=== PATIENT | female | born 1990 | race Two or more races ===

== ENCOUNTER 2024-01-25 03:00 | Inpatient (IN) | payer MEDICAID, SELFPAY ==
[2024-01-25] VITALS (23 sets, daily range): BP systolic 94–124; BP diastolic 51–75; PULSE 71–91; RESP 15–18; TEMP 36.3–37.2; O2SAT 95–97; BMI 28.1
[2024-01-25 03:31] LABS: ROM Kit Lot # 57805053
[2024-01-25 03:32] LABS: ROM Swab Mixed By: RAWLT; Swb Mxed in Solvent 1 min? Yes
[2024-01-25 03:42] LABS: Rupture of Fetal Membranes Positive (Negative)
[2024-01-25] MEDS: RINGERS LACTATED 1000 ML 1,000 ML 125 ML IV (04:10)
[2024-01-25 04:49] LABS: Basophils # (Auto) 0.1 Thou/mm3 (0.0-0.2); Basophils % (Auto) 0 % (0-2.5); Eosinophils # (Auto) 0.1 Thou/mm3 (0.0-0.5); Eosinophils % (Auto) 1 % (0-10); Hemoglobin 11.3 g/dL (12.0-16.0); Immature Granulocytes % (Auto) 1 % (0-0); Immature Granulocytes Auto 0.08 Thou/mm3 (0.00-0.00); Lymphocytes # (Auto) 1.5 Thou/mm3 (1.0-4.8); Lymphocytes % (Auto) 10 % (10-50); Mean Corpuscular HGB Conc 35.3 g/dl (31.0-37.0); Mean Corpuscular Hemoglobin 31.9 pg (25.0-35.0); Mean Corpuscular Volume 90 fL (80-100); Monocytes # (Auto) 0.9 Thou/mm3 (0.0-0.8); Monocytes % (Auto) 6 % (0-12); Neutrophils # (Auto) 11.9 Thou/mm3 (1.8-7.7); Neutrophils % (Auto) 83 % (37-80); Nucleated Red Blood Cell % 0 /100 WBC (0); Platelet Count 227 Thou/mm3 (140-440); RDW Standard Deviation 45.1 fL (36.4-46.3); Red Blood Count 3.54 Miln/mm3 (4.00-5.20); White Blood Count 14.4 Thou/mm3 (3.6-11.0)
[2024-01-25 05:49] LABS: Syphilis Nonreactive (Nonreactive)
--- NOTE | 2024-01-25 07:29 | ESHP_ITS ---
Documentation for date of: 01/25/24 OB Labor/Induct. HPI History of Present Illness Chief complaint: leaking : 4 Para: 3 Term pregnancies: 3 pregnancies: 0 Living children: 3 History of Abortions: Spontaneous and Elective: 0 History of Vaginal deliveries: 3 History of sections: No History of : No Date of last menstrual period: 04/22/23 YARELIS: 01/27/24 Gestational Age (weeks): 39 Gestational Age (days): 6 Gestational age based on last menstrual period: 39 History of present illness: This is a 33-year-old 4 para 3 admit to labor and delivery complains of leaking fluid since 10 PM. And contractions. Patient been followed at [facility]. First visit was at 11 weeks. Last period April 22, 2023. This gave due date January 27, 2024. She is 40 and 5. Patient is A+, antibody screen negative, RPR nonreactive, rubella immune, hepatitis B negative, hepatitis C negative, HIV negative, GC and Chlamydia were negative. Her GBS negative. Her 1 hour was normal. She had a negative NIPT and carrier screen. And normal anatomy scans History of Present Dating criteria: LMP confirmed by 1st trimester US Adequate Care: Yes Ultrasounds: normal 1st trimester US Obstetrical complications: none Medical complications: none Labs Labs: Negative: Hepatitis B, HIV, Chlamydia, Gonorrhea and Group Beta Strep Review of Systems Review of Systems Systems Reviewed: All systems reviewed, normal except as documented Past Medical History Surgical History SURGICAL: Negative Section Meds Home Medications and Allergies Home Medications ?Medication ?Instructions ?Recorded ?Confirmed ?Type ferrous sulfate 27 mg iron tablet 27 mg PO BID 06/30/22 01/25/24 History vitamin-ferrous fumarate 1 tab PO QDAY 06/30/22 01/25/24 History 28 mg iron-folic acid 800 mcg tablet ( Vitamins with Minerals) Allergies Allergy/AdvReac Type Severity Reaction Status Date / Time No Known Allergies Allergy Verified 01/25/24 03:04 OB Exam Physical Exam Vital signs: Temp Pulse Resp BP 97.4 F 76 18 109/62 01/25/24 03:28 01/25/24 07:23 01/25/24 03:28 01/25/24 07:23 Narrative: Alert and oriented. Normal heart rate and rhythm. Lungs clear no wheezes. Gravid abdomen. Gynecoid pelvis. Estimated weight 7 pounds 10. Vaginal exam on admission was 70%, 4, -3. Vertex. heart rate category 1 with accelerations and moderate variability contractions about every 5 minutes. And leaking clear fluid Detailed Labor and Delivery Exam Dilation (cm): 4 Effacement (%): 70 Cervix position: mid station: -3 Consistency: soft Presentation: Vertex Cervical ripeness score: 8 Membranes: ruptured Amniotic fluid: clear Baseline heart rate: 135 monitor accelerations: 15x15 monitor decelerations: None superintendent terminal variability: Moderate (11-25) Contraction frequency (min): 5 Contraction duration (sec): 30 Tachysystole: No Contraction intensity: Moderate OB Results Labs 01/25/24 04:05 Labs: Short CBC 01/25/24 Range/Units 04:05 WBC 14.4 H (3.6-11.0) Thou/mm3 Hgb 11.3 L (12.0-16.0) g/dL Hct 32.0 L (36.0-46.0) % Plt Count 227 (140-440) Thou/mm3 Impressions Impression: labor OB Assessment & Plan Assessment and Plan (1) Normal labor and delivery: Status: Acute Additional Plan Induction method: none Plan: anticipate NVD and consult MD sawyer
[2024-01-25] MEDS: ACETAMINOPHEN IVPB 1,000 MG/100 ML VIAL 250 MG IV (07:35)
[2024-01-25] MEDS: OXYTOCIN in NS 30 units 30 UNIT/500 ML BAG IV (07:35)
[2024-01-25] MEDS: OXYTOCIN INJ 10 UNIT/ML VIAL IM (08:08)
[2024-01-25] MEDS: TRANEXAMIC ACID 1,000 MG IVPB 1,000 MG/100 ML BAG 200 MG IV ×2 (08:09→09:52)
[2024-01-25] MEDS: OXYTOCIN in NS 20 units 20 UNIT/1,000 ML BAG 125 UNIT IV (08:09)
[2024-01-25] MEDS: LIDOCAINE HCL 1% 20 ML VIAL INFL (08:09)
[2024-01-25] MEDS: MISOPROSTOL 200 mCg TABLET 800 MCG PR (08:10)
[2024-01-25] MEDS: BENZO/LANO/ALOE (Dermoplast) 60 GM CAN 1 SPRAY TOP (08:29)
[2024-01-25] MEDS: IBUPROFEN TAB 400 MG TABLET 800 MG PO (08:30)
--- NOTE | 2024-01-25 08:38 | PD.LDDELS ---
Data (Cheek) Data Hx Section: No : 4 Para: 3 Term: 3 : 0 : 0 Delivery Data (Cheek) Labor Data Stimulated/Augmented: Yes Induction: No ROM Date: 01/24/24 ROM Time: 22:20 Rupture Type: SROM Amniotic Fluid: Clear Delivery Data EDC: 01/27/24 EDC calculated by:: LMP/early US confirmation Labor Onset Stage 1 Date: 01/25/24 Labor Onset Stage 1 Time: 06:53 Labor Onset Stage 2 Date: 01/25/24 Labor Onset Stage 2 Time: 07:50 Delivery Date: 01/25/24 Delivery Time: 08:00 Gestational age (weeks): 39 Gestational age (days): 5 Placenta Delivery Date: 01/25/24 Placenta Delivery Time: 08:09 Delivered by: Cecilia Bates Delivery nurse: Juan Delgado Other staff at delivery: 2nd Nurse Other staff at delivery: Cynthia Amaral Delivery Method Delivery: Vaginal Delivery Type: Spontaneous Presentation: Vertex Position: OA Anesthesia Type Primary Anesthesia: Local Delivery Room Medications Intrapartum Medications: Tocolytics Other Intrapartum Medications: No Post Delivery Medications: Tocolytics and Cytotec Placenta Placenta Delivery: Spontaneous (placenta inspected and was intact/complete) Placenta Cultures Obtained: No Placenta Sent for Examination: No Cord Sample: Cord Blood Obtained Episiotomy Episiotomy: None Lacerations #1: Perineal: 1st degree (small 1st with repair) Perineal repair Sutures used for repair: 3.0 Vicryl EBL Estimated blood loss (ml): 400 Umbilical Cord Umbilical Vessels: 3 Nuchal Cord: None Body Cord: None Data (Cheek) Data Infant Gender: Female Weight Grams: 3500 1 Minute Total: 9 5 Minute Total: 9
[2024-01-25] MEDS: DOCUSATE SOD 100 MG CAPSULE PO ×2 (09:52→20:11)
[2024-01-25 17:21] LABS: Basophils # (Auto) 0.1 Thou/mm3 (0.0-0.2); Basophils % (Auto) 1 % (0-2.5); Eosinophils # (Auto) 0.1 Thou/mm3 (0.0-0.5); Eosinophils % (Auto) 1 % (0-10); Hematocrit 32.2 % (36.0-46.0); Hemoglobin 11.1 g/dL (12.0-16.0); Immature Granulocytes % (Auto) 1 % (0-0); Immature Granulocytes Auto 0.08 Thou/mm3 (0.00-0.00); Lymphocytes # (Auto) 1.8 Thou/mm3 (1.0-4.8); Lymphocytes % (Auto) 12 % (10-50); Mean Corpuscular HGB Conc 34.5 g/dl (31.0-37.0); Mean Corpuscular Hemoglobin 31.3 pg (25.0-35.0); Mean Corpuscular Volume 91 fL (80-100); Monocytes % (Auto) 7 % (0-12); Neutrophils # (Auto) 12.2 Thou/mm3 (1.8-7.7); Neutrophils % (Auto) 80 % (37-80); Nucleated Red Blood Cell % 0 /100 WBC (0); Platelet Count 224 Thou/mm3 (140-440); RDW Standard Deviation 45.1 fL (36.4-46.3); Red Blood Count 3.55 Miln/mm3 (4.00-5.20); White Blood Count 15.3 Thou/mm3 (3.6-11.0)
[2024-01-26] VITALS: BP 100/64; PULSE 78; RESP 18; TEMP 37; O2SAT 97
[2024-01-26 04:00] VITALS: BP 111/72; PULSE 78; RESP 18; TEMP 36.9; O2SAT 93
--- NOTE | 2024-01-26 05:12 | PD.LDPPPRG ---
Subjective Subjective Interval history: No complaints of pain. Bonding and breast-feeding Exam Vital Signs Temp Pulse Resp BP Pulse Ox O2 Del Method 98.4 F 78 18 111/72 93 L Room Air 01/26/24 04:00 01/26/24 04:00 01/26/24 04:00 01/26/24 04:00 01/26/24 04:00 01/26/24 04:00 Narrative Exam Vital signs are stable afebrile. Breasts are soft. Fundus firm below the umbilicus negative Homans' sign. No overt signs of phlebitis 2+ DTRs. Uterus well involuted. Small perineal laceration is intact. No swelling. Small lochia Objective Labs 01/25/24 17:07 Labs: Laboratory Results - last 24 hr 01/25/24 01/25/24 04:05 17:07 WBC 15.3 H RBC 3.55 L Hgb 11.1 L Hct 32.2 L MCV 91 MCH 31.3 MCHC 34.5 RDW Std Deviation 45.1 Plt Count 224 Neut % (Auto) 80 Lymph % (Auto) 12 [place] % (Auto) 7 Eos % (Auto) 1 Baso % (Auto) 1 Neut # (Auto) 12.2 H Lymph # (Auto) 1.8 [place] # (Auto) 1.0 H Eos # (Auto) 0.1 Baso # (Auto) 0.1 Immature Gran # (Auto) 0.08 H Absolute Nucleated RBC 0.00 Immature Gran % 1 H Nucleated RBC % 0 Syphilis Serology Nonreactive Blood Type A Positive Antibody Screen NEGATIVE Assessment & Plan Problem List (1) Normal labor and delivery: Status: Acute Assessment Comment Assessment comment: 24 hr pp Plan Comment Plan Comment: Discharge home with baby today. Continue vitamins and iron. Tylenol or ibuprofen for pain. Danger signs discussed with patient. Reviewed care of perineal laceration. Discussed signs and symptoms of infection and ER precautions. Return in 2 weeks visit Time Spent With Patient Time: Total time spent is greater than 50% in coordination of care (as documented) at patient's floor/unit and/or counseling patient:
--- NOTE | 2024-01-26 05:14 | ESDS_ITS ---
DS: Providers Provider Date of admission: 01/25/24 03:47 Primary care physician: Physician No Primary/Family Admitting Provider: Anibal Li MD Attending Provider on Admission: Anibal Li MD Consults: 01/25/24 08:44 Referral Routine Comment: Attending Provider on DC: Leonor Serra CNM Discharging Provider: Leonor Serra CNM DS: Diagnosis Problem List Completed Was Problem List Reviewed/Reconciled?: Yes Summary/Hosp Course Brief History: This is a 33-year-old 4 para 3 admit to labor and delivery complains of leaking fluid since 10 PM. And contractions. Patient been followed at [facility]. First visit was at 11 weeks. Last period April 22, 2023. This gave due date January 27, 2024. She is 40 and 5. Patient is A+, antibody screen negative, RPR nonreactive, rubella immune, hepatitis B negative, hepatitis C negative, HIV negative, GC and Chlamydia were negative. Her GBS negative. Her 1 hour was normal. She had a negative NIPT and carrier screen. And normal anatomy scans Peripartum Data Delivery Method: Normal Vaginal Delivery Episiotomy Description: None Laceration Description: yes (small 1st) Time Spent with Patient Time attestation: Total time spent providing and/or coordinating discharge services: Exam Vital Signs Temp Pulse Resp BP Pulse Ox O2 Del Method 98.4 F 78 18 111/72 93 L Room Air 01/26/24 04:00 01/26/24 04:00 01/26/24 04:00 01/26/24 04:00 01/26/24 04:00 01/26/24 04:00 Discharge Plan Plan Patient Disposition: HOME (Self Care) Prescriptions/Referrals Prescriptions/Med Rec: No Action vit-iron fum-folic ac [ Vitamin with Minerals] 28 mg iron- 800 mcg Tablet 1 tab PO QDAY ferrous sulfate 27 mg iron Tablet 27 mg PO BID Referrals: No Primary/Family,Physician [Primary Care Provider] - Patient/Caregiver Discharge Instructions Print Language: Slovenian Activity Restrictions/Additional Instructions: Discharge home with baby. Continue vitamins and iron. Tylenol or ibuprofen for pain. I discussed laceration care with patient and sitz bath's twice daily. Discussed danger signs and symptoms. I reviewed ER precautions and parameters. And discussed signs symptoms of infection. Return in 2 weeks visit Stand Alone Forms: [employer] Award Info., Patient Portal Info Letter Discharge Order Discharge Orders: Discharge (Routine); Ordered 01/26/24 Ordered By: Leonor Serra Planned Discharge Date 01/26/24
[2024-01-26 07:30] VITALS: BP 108/71; PULSE 77; RESP 18; TEMP 36.6; O2SAT 97
== END 2024-01-26 11:22 | disposition home or self-care (01) | DRG 560 ==
LOC: S4SX 08:07 → S4NX 10:40
PROVIDERS: Advanced Practice Midwife; Admitting Provider Obstetrics & Gynecology; Visit Provider Obstetrics & Gynecology
DX: O70.0 First degree perineal laceration during delivery (principal); Z37.0 Single live birth; Z3A.39 39 weeks gestation of pregnancy
CPT/HCPCS: 36415; 59025; 59409; 84112; 85025; 86780; 86850; 86900; 86901; J0131; J2590; J3490; J7120; S0191; A9270